=== PATIENT | female | born 1975 | race Two or more races ===

== ENCOUNTER → 2024-03-28 | Outpatient (CLI) | payer BC ==
[2024-03-28 10:06] LABS: Basophils # (auto) 0 10 ^3/uL (0-0.2); Basophils % (auto) 0.8 % (0.0-2.0); Eosinophils # (auto) 0.1 10 ^3/uL (0-0.8); Eosinophils % (auto) 2.2 % (0.0-7.0); Hemoglobin 13.2 g/dL (12.2-16.2); Lymphocytes # (auto) 1.6 10 ^3/uL (0.4-5.4); Lymphocytes % (auto) 32.4 % (10.0-50.0); Mean Corpuscular Hemoglobin 30.6 pg (28.0-32.0); Mean Corpuscular Hgb Conc. 33.1 g/dL (32.0-36.0); Mean Corpuscular Volume 92.5 fL (80.0-100.0); Monocytes # (auto) 0.4 10 ^3/uL (0-1.3); Monocytes % (auto) 7.7 % (0.0-12.0); Neutrophils # (auto) 2.8 10 ^3/uL (1.6-8.6); Neutrophils % (auto) 56.9 % (37.0-80.0); Nucleated Red Blood Cells % 0.1 %; Platelet Count (auto) 329 10^3/uL (140-450); Red Blood Cells 4.32 10^6/uL (4.0-5.20); Red Cell Distribution Width 13.4 % (11.8-14.3); White Blood Cell 4.8 10^3/uL (4.4-10.8)
[2024-03-28 10:33] LABS: Free T3 3.39 pg/mL (2.3-4.2)
[2024-03-28 10:34] LABS: Free T4 (Free Thyroxine) 1.45 ng/dL (0.89-1.76)
[2024-03-28 11:47] LABS: Alanine Aminotransferase 23 U/L (7-40); Anion Gap 5 (5-15); Calcium 9.8 mg/dL (8.7-10.4); Carbon Dioxide 27 mmol/L (20-31); Chloride 105 mmol/L (98-107); Potassium 4.5 mmol/L (3.5-5.1); Sodium 137 mmol/L (136-145)
[2024-03-28 11:48] LABS: Aspartate Aminotransferase 19 U/L (13-40); Glucose 92 mg/dL (74-106)
[2024-03-28 11:49] LABS: BUN/Creatinine Ratio 20.8 (10.0-20.0); Blood Urea Nitrogen 15 mg/dL (9-23)
[2024-03-28 11:51] LABS: Albumin 4.3 g/dL (3.2-4.8); Bilirubin, Total 0.6 mg/dL (0.2-1.0); Total Protein 6.9 g/dL (5.7-8.2)
[2024-03-28 12:30] LABS: Alkaline Phosphatase 55 U/L (46-116)
[2024-03-29 13:30] LABS: Triglycerides 84 mg/dL (< 150)
[2024-03-29 13:32] LABS: Cholesterol 154 mg/dL (< 200); HDL Cholesterol 45 mg/dL (40-59)
[2024-03-29 13:35] LABS: LDL Cholesterol 102 mg/dL (< 100)
== END | disposition home or self-care (01) ==
LOC: LAB 09:11
PROVIDERS: ATTEND Internal Medicine
DX: I34.9 Nonrheumatic mitral valve disorder, unspecified (principal); R00.2 Palpitations
CPT/HCPCS: 36415; 80053; 80061; 84439; 84443; 84481; 85025

== ENCOUNTER → 2024-04-11 | Outpatient (CLI) | payer BC ==
[~2024-04-11] VITALS: Ht 152.4 cm; Wt 65.8 kg
[2024-04-11 10:00] VITALS: BP 121/76; PULSE 81; RESP 16
--- NOTE | 2024-04-11 12:39 | DVHCARD ---
Cardiology Stress Test [place] Treadmill Stress Test [place] Referring MD: MD Isaiah Protocol: David (without cardiolite) Reason for referral: Other (Hx of mitral valve prolapse) Target heart Rate:@85%: 147 Percent MPHR: 174 METS: 10.10 Resting Heart rate: 81 Resting Blood Pressure: 121/76 Exercise Heart Rate: 144 Exercise Blood Pressure: 157/63 Baseline EKG: Normal sinus rhythm Stress EKG: Sinus tachycardia Functional Capacity: Good Normal Heart Rate Response: Adequate Blood Pressure Response: Hypertensive Clinical response: Non-ischemic Arrhythmia?: No Cardiolite Injected?: No ST-T Changes: Non/Minimal Probability of Inducible Ische: Low Comments: Excessive artifact during phase three on ECG Date of Service: Apr 11, 2024 Billing Provider: ОЛЬГА MURO Cardiology Common Codes: PROCEDURE ONLY Treadmill w/o Cardiolite: [id number], INTERP, RPT ОЛЬГА MURO Apr 11, 2024 12:39
== END | disposition home or self-care (01) ==
LOC: XYW 09:12
PROVIDERS: ATTEND Internal Medicine
DX: I34.89 Other nonrheumatic mitral valve disorders (principal)
CPT/HCPCS: 93017

== ENCOUNTER 2024-07-19 11:27 | Outpatient (CLI) | payer BC ==
[2024-07-19 12:47] LABS: Follicle Stimulating Hormone 8.1 IU/L (SEE BELOW); Leuteinizing Hormone 5.5 IU/L
[2024-07-20 10:07] LABS: Estradiol 94.1 pg/mL (.)
[2024-07-22 17:07] LABS: Free Testosterone(Direct) 0.9 pg/mL (0.0-4.2)
== END 2024-07-19 17:00 | disposition home or self-care (01) ==
LOC: LAB 11:27
PROVIDERS: ATTEND Internal Medicine
DX: N95.9 Unspecified menopausal and perimenopausal disorder (principal)
CPT/HCPCS: 82626; 82670; 83001; 83002; 84144; 84402; 84403